=== PATIENT | female | born 1990 | race Caucasian/White ===

== ENCOUNTER 2017-07-31 13:49 | Emergency (ER) | payer MEDICAID ==
[~2017-07-31] VITALS: Ht 177.8 cm; Wt 73.9 kg
[2017-07-31 13:57] VITALS: BP 121/76
== END 2017-07-31 17:10 | disposition home or self-care (01) ==
LOC: ED 13:49
DX: H54.7 Unspecified visual loss (principal); J01.90 Acute sinusitis, unspecified; Z88.1 Allergy status to other antibiotic agents

== ENCOUNTER 2018-04-03 14:46 | Inpatient (IN) | payer MEDICAID ==
[~2018-04-03] VITALS: Ht 177.8 cm; Wt 80.7 kg
[2018-04-03 14:49] VITALS: Ht 177.8 cm; Wt 80.7 kg
[2018-04-03 16:57] LABS: CALCIUM 8.7 mg/dL (8.5-10.1); CARBON DIOXIDE 21.7 mmol/L (21-32); CHLORIDE SERUM 103 mmol/L (98-107); CREATININE SERUM 0.6 mg/dL (0.6-1.0); GFR1 > 60 mL/min; GLUCOSE SERUM 107 mg/dL (74-106); POTASSIUM SERUM 3.8 mmol/L (3.5-5.1); SODIUM SERUM 137 mmol/L (136-145)
[2018-04-03 17:00] LABS: BASOPHIL % 0.3 % (0-2); PLATELET COUNT 252 x10^3mcL (130-400); RED CELL DISTRIBUTION WIDTH 13.2 % (11.5-14.5)
[2018-04-03 17:02] LABS: ALBUMIN 3.6 g/dL (3.4-5.0); ALKALINE PHOSPHATASE 64 U/L (46-116); ALT/SGPT 13 U/L (14-59); AST/SGOT 13 U/L (15-37); BILIRUBIN TOTAL 0.28 mg/dL (0.20-1.00); TOTAL PROTEIN, SERUM 7.2 g/dL (6.4-8.2)
[2018-04-03 17:20] LABS: UA SPECIFIC GRAVITY <=1.005 (1.005-1.035); microscopic required? YES; urine erythrocyte TRACE (NEGATIVE)
[2018-04-03 20:41] VITALS: BP 108/79
[2018-04-03 20:43] LABS: MAGNESIUM 1.8 mg/dL (1.8-2.4); PHOSPHOROUS 2.2 mg/dL (2.5-4.9)
[2018-04-03 20:48] LABS: CHOLESTEROL/HDL RATIO 2.1
[2018-04-03 20:51] LABS: T3 TOTAL 1.18 ng/mL
[2018-04-03] MEDS ORDERED: XANAX0.25 MG PO (20:52)
[2018-04-03 21:09] LABS: FREE T4 1.05 ng/dL (0.76-1.46); FREE THYROXINE INDEX 2.9 ug/dL (1.4-4.5); T4(THYROXINE) 8.9 ug/dL (4.7-13.3)
[2018-04-03 22:02] LABS: AMPHETAMINE QUAL UR NONE DETECTED (See below)
[2018-04-04 04:32] VITALS: BP 132/71
[2018-04-04 06:00] VITALS: BP 107/70
[2018-04-04 06:29] LABS: BASOPHIL % 0.3 % (0-2); PLATELET COUNT 222 x10^3mcL (130-400); RED CELL DISTRIBUTION WIDTH 12.8 % (11.5-14.5)
[2018-04-04 07:00] LABS: CALCIUM 7.6 mg/dL (8.5-10.1); CARBON DIOXIDE 21.9 mmol/L (21-32); CHLORIDE SERUM 106 mmol/L (98-107); CREATININE SERUM 0.6 mg/dL (0.6-1.0); GFR1 > 60 mL/min; GLUCOSE SERUM 99 mg/dL (74-106); MAGNESIUM 1.5 mg/dL (1.8-2.4); PHOSPHOROUS 2.4 mg/dL (2.5-4.9); POTASSIUM SERUM 3.3 mmol/L (3.5-5.1); SODIUM SERUM 139 mmol/L (136-145)
== END 2018-04-04 15:49 | disposition left against medical advice (07) | DRG 463 ==
LOC: ED 14:46 → MU 19:42
PROVIDERS: Emergency Medicine; Family Medicine
DX: N10 Acute pyelonephritis (principal); E83.42 Hypomagnesemia; E83.39 Other disorders of phosphorus metabolism; F41.1 Generalized anxiety disorder; R31.9 Hematuria, unspecified; E87.6 Hypokalemia; J45.909 Unspecified asthma, uncomplicated; F17.210 Nicotine dependence, cigarettes, uncomplicated; Z90.49 Acquired absence of other specified parts of digestive tract; Z66 Do not resuscitate; Z53.29 Procedure and treatment not carried out because of patient's decision for other reasons
CPT/HCPCS: 83880; 84439; J1885; J1956; J2543; J3010; J3475; J7030; Q0092; Q9967

== ENCOUNTER 2018-04-17 22:39 | Emergency (ER) | payer MEDICAID ==
[~2018-04-17 22:39] MED LIST: XANAX0.25 MG PO
== END 2018-04-17 23:21 | disposition left against medical advice (07) ==
LOC: ED 22:39
DX: Z53.21 Procedure and treatment not carried out due to patient leaving prior to being seen by health care provider (principal)